=== PATIENT | male | born 1950 | race Caucasian/White ===

== ENCOUNTER 2016-11-26 23:55 | Emergency (ER) | payer BC ==
[~2016-11-26] VITALS: Ht 167.6 cm; Wt 87.1 kg
[~2016-11-26 23:55] MED LIST: ADVAIR 500/501 DISK IH; CIPRO500 MG PO; FLAGYL500 MG PO; MONTELUKAST SOD10 MG PO; PERCOCET 5/31 TABLET PO; ROPINIROLE HCL4 MG PO; SAVELLA50 MG PO; VENTOLIN HFA18 GM IH; VYTORIN 10/21 TABLET PO; ZOFRAN4 MG PO
[2016-11-27 00:20] LABS: ADD MIUA? YES; BILIRUBIN NEGATIVE; BLOOD LARGE; COLOR YELLOW ((YELLOW)); GLUCOSE (STRIP) 50; KETONES 5; LEUKOCYTES LARGE; NITRITE NEGATIVE; PROTEIN (STRIP) 100; SPECIFIC GRAVITY 1.024 (1.000-1.030); UROBILINOGEN 0.2 MG/DL (0.2-1.0)
[2016-11-27 00:44] LABS: BACTERIA 2+ /HPF; RED BLOOD CELLS TNTC /HPF (0-5); UCUL ADDED? YES; WHITE BLOOD CELLS TNTC /HPF (0-5)
[2016-11-27 01:07] LABS: HEMATOCRIT 41.7 % (38.0-50.0); MCH 30.9 PG (29.0-34.0); MCHC 34.5 G/DL (30.0-36.0); MCV 89.5 FL (86-99); MEAN PLAT.VOLUME 9.7 uM^3 (9.0-12.4); PLATELET COUNT 224 K/uL (156-360); RBC DIS.WIDTH-SD 42.5 % (39-53); RED BLOOD COUNT 4.66 M/uL (4.00-5.50); WHITE BLOOD COUNT 14.2 K/uL (4.1-10.2)
[2016-11-27 01:16] LABS: CHLORIDE 106 mEq/L (99-109); POTASSIUM 3.7 mEq/L (3.7-5.4); SODIUM 141 mEq/L (136-147)
[2016-11-27 01:18] LABS: GLUCOSE 163 mg/dL (70-99)
[2016-11-27 01:19] LABS: ANION GAP 12 MEQ/L (2-14)
[2016-11-27 01:22] LABS: GFR ESTIMATE (CALCULATED) > 59 mL/min/
[2016-11-27 01:23] LABS: UREA NITROGEN (BUN) 13 mg/dL (9-23)
[2016-11-27 02:23] VITALS: BP 166/55
== END 2016-11-27 02:24 | disposition home or self-care (01) ==
LOC: EME 23:55 → EXP 23:55
PROVIDERS: Physician Assistant
DX: N39.0 Urinary tract infection, site not specified (principal); I10 Essential (primary) hypertension; J44.9 Chronic obstructive pulmonary disease, unspecified; G25.81 Restless legs syndrome
CPT/HCPCS: 80048; 81003; 83605; 85027; 99281; 99283